=== PATIENT | female | born 1985 | race Caucasian/White ===

== ENCOUNTER 2023-03-18 01:04 | Emergency (ER) | payer BC, OTHER ==
[~2023-03-18] VITALS: Ht 165.1 cm; Wt 59.0 kg
[2023-03-18] MEDS ORDERED: METOCLOPRAMIDE HCL 10 MG/2 ML VIAL IV ONE (02:00)
[2023-03-18] MEDS ORDERED: MORPHINE SULFATE 4 MG/1 ML DISP.SYRIN IV ONE (02:00)
[2023-03-18] MEDS ORDERED: diphenhydrAMINE 50 MG/1 ML VIAL IV ONE (02:00)
[2023-03-18] MEDS ORDERED: IV NS 1000 ML 1,000 ML IV ONE (02:00)
[2023-03-18] MEDS ORDERED: KETOROLAC TROMETHAMINE 30 MG INJ IVP ONE (02:00)
[2023-03-18 02:15] LABS: *URINE HCG, QUAL NEGATIVE (NEGATIVE)
[2023-03-18] MEDS ORDERED: diphenhydrAMINE 50 MG/1 ML VIAL ONE (02:16)
[2023-03-18] MEDS ORDERED: KETOROLAC TROMETHAMINE 30 MG INJ ONE (02:16)
[2023-03-18] MEDS ORDERED: MORPHINE SULFATE 4 MG/1 ML DISP.SYRIN ONE (02:17)
[2023-03-18] MEDS ORDERED: METOCLOPRAMIDE HCL 10 MG/2 ML VIAL ONE (02:17)
[2023-03-18 03:39] VITALS: BP 118/84; O2SAT 98
== END 2023-03-18 03:20 | disposition home or self-care (01) ==
LOC: ER 01:10
DX: G43.909 Migraine, unspecified, not intractable, without status migrainosus (principal); Z90.710 Acquired absence of both cervix and uterus
CPT/HCPCS: 99284; 96374; 96375; 84703; J1200; J1885; J2765; J2270; J7040; A4663

== ENCOUNTER 2023-12-05 23:18 | Emergency (ER) | payer OTHER | END 2023-12-06 00:09 | disposition left against medical advice (07) | LOC: ER 23:20 | DX: R07.81 Pleurodynia (principal); Z53.21 Procedure and treatment not carried out due to patient leaving prior to being seen by health care provider ==

== ENCOUNTER 2024-02-09 03:24 | Emergency (ER) | payer OTHER ==
[~2024-02-09] VITALS: Ht 165.1 cm; Wt 61.2 kg
[2024-02-09 03:28] VITALS: O2SAT 97
[2024-02-09] MEDS ORDERED: OXYC-128 PO (04:40)
[2024-02-09] MEDS: OXYCODONE/APAP 5-325 MG TABLET PO ONE (04:50)
[2024-02-09] MEDS ORDERED: OXYCODONE/APAP 5-325 MG TABLET ONE (04:54)
== END 2024-02-09 05:00 | disposition home or self-care (01) ==
LOC: ER 03:54
DX: S61.411A Laceration without foreign body of right hand, initial encounter (principal); G43.909 Migraine, unspecified, not intractable, without status migrainosus; Z90.49 Acquired absence of other specified parts of digestive tract; Z79.891 Long term (current) use of opiate analgesic; W26.8XXA Contact with other sharp object(s), not elsewhere classified, initial encounter; Y93.89 Activity, other specified; Y92.89 Other specified places as the place of occurrence of the external cause; Y99.8 Other external cause status
CPT/HCPCS: A4606; A4663